=== PATIENT | male | born 1990 | race Caucasian/White ===

== ENCOUNTER → 2022-08-17 12:51 | Outpatient (CLI) | payer OTHER, SELFPAY ==
--- NOTE | 2022-08-17 13:07 | DI.MRI.S_ITS ---
PROCEDURE: MR KNEE LT WO CON INDICATIONS: pain in left knee TECHNIQUE: Noncontrast sagittal PD fast spin echo and T2 fast spin echo with fat saturation, sagittal 3-D FLASH with fat saturation; coronal T1 spin echo and PD fast spin echo with fat saturation, and axial PD fast spin echo with fat saturation through the knee. COMPARISON: None. FINDINGS: Image quality: Excellent. Anterior Cruciate Ligament: Intact. Posterior Cruciate Ligament: Intact. Medial Collateral Ligament: Intact. Lateral Collateral Ligament: Intact. Medial Meniscus: No definite meniscal tear is seen. There is a 12 x 7 x 7 mm ovoid intermediate signal intensity lesion at the anterior root attachment of the medial meniscus, possibly representing a developing meniscal ossicle versus cartilaginous loose body or focal synovial hypertrophy. Similar intermediate signal intensity is seen adjacent to the posterior root attachment of the medial meniscus measuring 13 x 12 x 15 mm. Lateral Meniscus: Intact. Medial and Lateral Tendons: The semimembranosus tendon insertions and meniscocapsular junction appear intact. Visualized portions of the pes anserinus tendons appear normal. No abnormal bursal fluid. The long and short heads of the biceps femoris tendon appear intact. The popliteus tendon appears intact. No signs of posterolateral corner injury. Iliotibial band appears normal. Anterior Structures: The quadriceps and patellar tendons appear intact. No patellar subluxation. No femoral trochlear dysplasia or ventral trochlear prominence. No edema in the infrapatellar fat pad. Bones: No acute trabecular bone injury or fracture. Medial Femorotibial Cartilage: Intact. Lateral Femorotibial Cartilage: Intact. Patellofemoral Cartilage: Deep cartilage fissuring is seen at the medial patellar facet.. Soft Tissues: A moderate joint effusion is present. There is a small nonedematous ossified intra-articular loose body adjacent to the posterior medial femoral condyle near the medial head of the gastrocnemius insertion measuring 6 x 5 x 6 mm. Additional mildly edematous ossified loose body is seen medial to the posterior medial femoral condyle measuring 7 x 5 x 2 mm. Scattered foci of mild to moderate synovial hypertrophy are seen surrounding the lateral femorotibial compartment and in the suprapatellar recess. Trace medial popliteal cyst. The musculature surrounding the knee is normal in bulk. IMPRESSION: 1. No acute trabecular bone injury. The cruciate and collateral ligaments are intact. No definite meniscal tear is seen. 2. Focal deep cartilage fissuring in the medial patellar facet. Articular cartilages are otherwise intact. 3. Moderate joint effusion with mild to moderate synovial hypertrophy. Additional nodular foci of intermediate signal intensity adjacent to the anterior and posterior root attachments of the medial meniscus are suspicious for focal synovial hypertrophy or PVNS. No osseous erosion is seen. 4. Small ossified intra-articular loose bodies in the posterior medial joint capsule. Approved by: Abilio Del Rosario M.D. on 08/17/2022 at 14:01
== END ==
PROVIDERS: PCP Family Medicine; Referring Provider Nurse Practitioner Family; Visit Provider Nurse Practitioner Family
DX: M23.42 Loose body in knee, left knee (principal); M25.562 Pain in left knee; M25.462 Effusion, left knee
CPT/HCPCS: 73721